=== PATIENT | female | born 1995 | race Caucasian/White ===

== ENCOUNTER 2019-03-18 11:47 | Emergency (ER) | payer MEDICAID ==
[~2019-03-18] VITALS: Ht 162.6 cm; Wt 53.2 kg
[~2019-03-18 11:47] MED LIST: NO MEDICATIONS
[2019-03-18 12:00] VITALS: BP 127/83
[2019-03-18] MEDS ORDERED: HYDROcodone/acetaminophen 5mg/325mg tablet PO ONE (12:15)
[2019-03-18] MEDS ORDERED: clindamycin 150mg capsule PO ONE (12:15)
[2019-03-18] MEDS ORDERED: ketorolac trometh inj. 60 MG/2 ML VIAL IM ONE (12:15)
[2019-03-18] MEDS ORDERED: HYDR-4383 PO (12:18)
[2019-03-18] MEDS ORDERED: CLIN-96 PO (12:18)
== END 2019-03-18 12:50 | disposition home or self-care (01) ==
LOC: ER 11:48
DX: K02.9 Dental caries, unspecified (principal); F17.200 Nicotine dependence, unspecified, uncomplicated; F10.99 Alcohol use, unspecified with unspecified alcohol-induced disorder; Z79.899 Other long term (current) drug therapy; Y90.9 Presence of alcohol in blood, level not specified
CPT/HCPCS: 96372; 99283; J1885

== ENCOUNTER 2019-07-20 17:18 | Emergency (ER) | payer MEDICAID, OTHER ==
[~2019-07-20] VITALS: Ht 165.1 cm; Wt 54.5 kg
[~2019-07-20 17:18] MED LIST changes: +CLIN-90 PO; +HYDR-4383 PO
[2019-07-20] MEDS ORDERED: ondansetron/PF 4mg/2ml inj IV ONE (18:05)
[2019-07-20] MEDS ORDERED: normal saline 1000ML IV soln IVB ONE (18:05)
[2019-07-20] MEDS: morphine 4 MG/ML inj SYRINge IV PRN ×2 (18:23→21:29)
[2019-07-20 18:48] LABS: BASOPHILS % (AUTO) 0.3 % (0-1); EOSINOPHILS # (AUTO) 0.1 X10'3 (0-0.9); EOSINOPHILS % (AUTO) 1.1 % (0-6); HEMATOCRIT 38.9 % (35.0-45.0); HEMOGLOBIN 13.1 g/dl (12.0-16.0); LYMPHOCYTES # (AUTO) 1.9 X10'3 (1.1-4.8); LYMPHOCYTES % (AUTO) 14.7 % (21-51); MEAN CORPUSCULAR HEMOGLOBIN 31.3 PG (27.0-31.0); MEAN CORPUSCULAR HGB CONC 33.6 g/dL (33.0-36.5); MEAN CORPUSCULAR VOLUME 93.1 FL (78-98); MEAN PLATELET VOLUME 7.4 FL (7.4-10.4); MONOCYTES % (AUTO) 7.8 % (2-12); NEUTROPHILS # (AUTO) 9.9 X10'3 (1.8-7.7); NEUTROPHILS % (AUTO) 76.1 % (42-75); PLATELET COUNT 429 X10'3 (140-440); RED BLOOD COUNT 4.18 X10'6 (4.20-5.60); RED CELL DISTRIBUTION WIDTH 12.3 % (11.5-14.5); WHITE BLOOD COUNT 12.9 X10'3 (4.5-11.0)
--- NOTE | 2019-07-20 18:57 | NUR ---
DR. KRISHNAN IN TO [facility]. PT AWAITING US ABDOMEN. CURRENT VSS. PT DENIES PAIN BU REPROTS NAUSEA NOW. REQUESTING SOMETHING TO DRINK BUT MD STATES NPO AT THIS TIME AND PT UPDATED. TO ORDER ADTL ANTIEMETIC. PT WITH FRIEND AT [facility].
[2019-07-20 19:01] LABS: ALANINE AMINOTRANSFERASE 15 U/L (12-78); ALBUMIN 3.8 G/DL (3.4-5.0); ALBUMIN/GLOBULIN RATIO 0.9 (1.1-1.5); ALKALINE PHOSPHATASE 75 IU/L (46-116); ANION GAP 9 (8-16); ASPARTATE AMINO TRANSFERASE 19 U/L (10-37); BILIRUBIN,TOTAL 0.3 MG/DL (0.1-1.0); BLOOD UREA NITROGEN 9 MG/DL (7-18); BUN/CREATININE RATIO 11.7 (6.6-38.0); CALCIUM 9.4 MG/DL (8.5-10.1); CHLORIDE 102 MMOL/L (99-107); CREATININE 0.77 MG/DL (0.40-0.90); GLUCOSE 95 MG/DL (70-104); LIPASE 85 U/L (73-393); POTASSIUM 3.7 MMOL/L (3.5-5.1); SODIUM 139 MMOL/L (135-145); TOTAL CARBON DIOXIDE 27.7 MMOL/L (24-32); TOTAL PROTEIN 8.2 G/DL (6.4-8.2); eGFR > 90 ML/MIN
[2019-07-20] MEDS ORDERED: ketorolac trometh. 30mg/ml inj. IV ONE (19:25)
[2019-07-20 20:06] LABS: BETA HCG,QUANTITATIVE < 1.0 mIU/ml
[2019-07-20 21:30] VITALS: BP 96/40
== END 2019-07-20 21:31 | disposition home or self-care (01) ==
LOC: ER 17:19
DX: R10.11 Right upper quadrant pain (principal); K59.00 Constipation, unspecified; F17.210 Nicotine dependence, cigarettes, uncomplicated; Z79.2 Long term (current) use of antibiotics; Z79.899 Other long term (current) drug therapy
CPT/HCPCS: 36415; 74176; 76700; 80053; 83690; 84702; 85025; 96374; 96375; 99284; J2270; J2405; J7030

== ENCOUNTER 2019-09-26 09:31 | Emergency (ER) | payer MEDICAID, OTHER ==
[~2019-09-26] VITALS: Ht 162.6 cm; Wt 59.0 kg
[2019-09-26] MEDS ORDERED: penicillin G benzathine 1.2 million unit/2ml syringe IM ONE (10:50)
[2019-09-26] MEDS ORDERED: CefTRIAXone 250MG IM Kit w/LIDOcaine IM ONE (10:50)
[2019-09-26] MEDS ORDERED: azithromycin 250mg tablet PO ONE (10:50)
[2019-09-26] MEDS ORDERED: metroNIDAZOLE 500mg tablet PO ONE (10:50)
[2019-09-26 12:20] VITALS: BP 101/60
[2019-09-27 13:20] LABS: RPR Reactive (Non Reactive)
== END 2019-09-26 12:21 | disposition home or self-care (01) ==
LOC: ER 09:31
DX: A64 Unspecified sexually transmitted disease (principal); Z72.89 Other problems related to lifestyle; Z79.899 Other long term (current) drug therapy
CPT/HCPCS: 36415; 86592; 87491; 87591; 96372; 99283; J0561; J0696; J3490

== ENCOUNTER 2022-12-26 10:03 | Emergency (ER) | payer MEDICAID, OTHER ==
[~2022-12-26] VITALS: Ht 162.6 cm; Wt 66.2 kg
[~2022-12-26 10:03] MED LIST changes: -CLIN-90 PO; +CLIN-97 PO
[2022-12-26 10:11] VITALS: BP 116/67
[2022-12-26] MEDS ORDERED: AMOX-580 PO (10:23)
== END 2022-12-26 10:37 | disposition home or self-care (01) ==
LOC: ER 10:03
DX: K04.7 Periapical abscess without sinus (principal); K02.9 Dental caries, unspecified; Z79.899 Other long term (current) drug therapy
CPT/HCPCS: 99283

== ENCOUNTER 2023-09-29 11:29 | Emergency (ER) | payer MEDICAID, OTHER ==
[~2023-09-29] VITALS: Ht 162.6 cm; Wt 67.2 kg
[2023-09-29] MEDS ORDERED: PSEU120T56 PO (13:31)
[2023-09-29] MEDS ORDERED: ALBU8HFA INH (13:31)
[2023-09-29] MEDS ORDERED: FLUT16SP2 BOTHNARES (13:31)
[2023-09-29 13:38] VITALS: BP 100/51; PULSE 81; TEMP 98.5; O2SAT 100
[2023-09-29 13:39] VITALS: RESP 18
== END 2023-09-29 13:40 | disposition home or self-care (01) ==
LOC: ER 11:29
DX: B34.9 Viral infection, unspecified (principal); Z79.899 Other long term (current) drug therapy; Z72.89 Other problems related to lifestyle
CPT/HCPCS: 71045; 99283